=== PATIENT | female | born 1950 | race Caucasian/White ===

== ENCOUNTER 2016-11-10 05:18 | Inpatient (IN) | payer OTHER ==
[2016-11-10] VITALS (18 sets, daily range): BP systolic 102–157; BP diastolic 49–85
[~2016-11-10] VITALS: Ht 162.6 cm; Wt 72.6 kg
[2016-11-10] MEDS ORDERED: XANAX1 MG ORAL (06:08)
[2016-11-10] MEDS ORDERED: CYCLOBENZAPRINE10 MG ORAL (06:08)
[2016-11-10] MEDS ORDERED: PERCOCET 10-321 EACH ORAL (06:08)
[2016-11-10] MEDS ORDERED: Clindamycin 600mg 50 ML IV ONE (06:50)
[2016-11-10] MEDS ORDERED: Bacitracin 50000 Units Vial ONE (06:50)
[2016-11-10] MEDS ORDERED: Thrombin 5000 units TOPIC ONE (06:50)
[2016-11-10] MEDS ORDERED: Surgicel 4in x 8in TOPIC ONE (06:51)
[2016-11-10] MEDS ORDERED: Bupivacaine w/Epi 0.5% 30ml Vial INJ ONE (06:51)
[2016-11-10] MEDS ORDERED: Midazolam 2mg/2ml Inj ONE (07:00)
[2016-11-10] MEDS ORDERED: fentaNYL 100 mcg/2 mL IV ONE (07:00)
[2016-11-10] MEDS ORDERED: LR 1000ml ONE (07:00)
[2016-11-10] MEDS ORDERED: Glycopyrrolate 0.2mg/ml 1ml Vial ONE (07:00)
[2016-11-10] MEDS ORDERED: Morphine Sulfate 10mg/ml Inj ONE (07:00)
[2016-11-10] MEDS ORDERED: Succinylcholine 20mg/ml 10ml vial ONE (07:00)
[2016-11-10] MEDS ORDERED: Ketorolac 30mg Inj ONE (07:00)
[2016-11-10] MEDS ORDERED: Propofol 10mg/ml 20ml IV ONE (07:00)
[2016-11-10] MEDS ORDERED: Labetalol 5mg/ml 20ml vial IV ONE (07:00)
[2016-11-10] MEDS ORDERED: Neostigmine 1mg/ml 10ml Inj ONE (07:00)
[2016-11-10] MEDS ORDERED: Sterile Water Irrig 1000ml IRRIG ONE (07:00)
[2016-11-10] MEDS ORDERED: NS Irrig 1000ml ONE (07:00)
[2016-11-10] MEDS ORDERED: Zemuron 50mg/5ml Inj IV ONE (07:00)
--- NOTE | 2016-11-10 07:20 | Pre-Procedure Note/Attestation ---
Pre-Procedure Note/Attestation Complete Prior to Procedure Procedure Narrative: Severe stenosis with failing neurological function, for ACDF C4-5 & C5-6 Indications for Procedure Pre-Operative Diagnosis: Severe stenosis with failing neurological function, for ACDF C4-5 & C5-6 Attestation I attest that I discussed the nature of the procedure; its benefits; risks and complications; and alternatives (and the risks and benefits of such alternatives ), prior to the procedure, with the patient (or the patient's legal international representative). I attest that, if there was a reasonable possibility of needing a blood transfusion, the patient (or the patient's legal international representative) was given the [place] [facility] standardized written summary, pursuant to the [place] Blood Safety Act ([place] Health and Safety Code # 1645, as amended). I attest that I re-evaluated the patient just prior to the surgery and that there has been no change in the patient's H&P, except as documented below: PERRY CONTRERAS Nov 10, 2016 07:20
[2016-11-10] MEDS ORDERED: Thrombin 5000 units spray kit TOPIC ONE (08:03)
[2016-11-10] MEDS ORDERED: Gelfoam Absorbable 1gm powder pkt TOPIC ONE (08:04)
--- NOTE | 2016-11-10 08:40 | Anethesia Preoperative Eval ---
Anesthesia Pre-op PMH/ROS General Date of Evaluation: Nov 10, 2016 Time of Evaluation: 07:08 Anesthesiologist: Cristhian ASA Score: ASA 3 Mallampati Score Class I : Soft palate, uvula, fauces, pillars visible Class II: Soft palate, uvula, fauces visible Class III: Soft palate, base of uvula visible Class IV: Only hard plate visible Mallampati Classification: Class II Surgeon: Aquilino Diagnosis: Cerical radiculopathy Surgical Procedure: ACDF C4-C5 C5-C6 Anesthesia History: none Social History: current smoker Family History: no anesthesia problems Allergies: Coded Allergies: ACETAMINOPHEN (Verified Allergy, Unknown, 11/07/16) HYDROCODONE (Verified Allergy, Unknown, 11/07/16) PENICILLINS (Verified Allergy, Unknown, 11/07/16) Past Medical History Cardiovascular: Denies: CAD, HTN, [place], arrhythmia, other, valve dz Pulmonary: Reports: COPD, other - persistent voice horsness ENT exam bilateral arhytenoids and vocal cords swelling, Denies: CAR, asthma Gastrointestinal/Genitourinary: Reports: GERD, Denies: CRI, ESRD, other Neurologic/Psychiatric: Reports: depression/anxiety, other - chronic pain, Denies: CVA, TIA, dementia Endocrine: Denies: DM, hypothyroidism, other, steroids HEENT: Denies: MI'KMAQ (L), MI'KMAQ (R), cataract (L), cataract (R), glaucoma, other Hematology/Immune: Denies: DVT, anemia, bleeding disorder, other Musculoskeletal/Integumentary: Denies: DDD, DJD, OA, RA, edema, other Other: other - ovwerweight PMH Narrative: as above PSxH Narrative: T&A Anesthesia Pre-op Phys. Exam Physician Exam Last Vital Signs Date Time Temp Pulse Resp B/P Pulse Ox O2 Delivery O2 Flow Rate FiO2 11/10/16 06:30 97.9 71 20 132/73 97 Room Air Constitutional: NAD Neurologic: CN 2-12 intact Cardiovascular: RRR, no M/R/G Respiratory: other - some whezing bilaterally Gastrointestinal: S/NT/ND Airway Exam Mallampati Score: Class II MO: limited Neck: stiff ROM: limited Teeth: missing Dentures: no lower, no upper Anesthesia Pre-op A/P Labs see chart Studies Pre-op Studies: EKG - NSR, CXR - WNL, echo - EF 55-60% Risk Assessment & Plan Assessment: ASA 3 Plan: GA with ETT deep extubation possible respiratory support postoperatively Status Change Before Surgery: No Pre-Antibiotics Drug: Clindamycin 600 mg. Given Within 1 Hr of Incision: Yes Time Given: 07:56 JORDAN FIGUEROA M.D. Nov 10, 2016 08:40
[2016-11-10] MEDS ORDERED: LR 1000ml 1,000 ML IVLG SCH (08:43)
[2016-11-10] MEDS ORDERED: Metoclopramide 10mg/2ml Inj IVP PRN (08:45)
[2016-11-10] MEDS ORDERED: DiphenhydrAMINE 50mg/ml Inj IVP PRN ×2 (08:45→10:45)
[2016-11-10] MEDS ORDERED: Hydromorphone 0.5mg/0.5ml inj IVP PRN (08:45)
[2016-11-10] MEDS ORDERED: Midazolam 2mg/2ml Inj IVP PRN (08:45)
[2016-11-10] MEDS ORDERED: Meperidine 25mg/ml Inj IV PRN (08:45)
[2016-11-10] MEDS ORDERED: Naloxone 0.4mg/ml Inj IVP PRN (10:45)
[2016-11-10] MEDS ORDERED: Rate Change PCA 1 Each MISC PRN (10:45)
[2016-11-10] MEDS: PCA HYDROmorphone 1mg/ml 30 ML IV PRN (11:12)
--- NOTE | 2016-11-10 11:56 | Immediate Post-Op Evaluation ---
Immediate Post-Op Evalulation Immediate Post-Op Evalulation Procedure: ACDF C4-5 C5-C6 Date of Evaluation: Nov 10, 2016 Time of Evaluation: 10:10 IV Fluids: 700 Blood Products: none Estimated Blood Loss: 50 Urinary Output: none Blood Pressure Systolic: 142 Blood Pressure Diastolic: 56 Pulse Rate: 78 Respiratory Rate: 22 O2 Sat by Pulse Oximetry: 99 Temperature (Fahrenheit): 97.3 Pain Score (1-10): 2 Nausea: No Vomiting: No Complications none Patient Status: reacts, patent, extubated, none Hydration Status: adequate JORDAN FIGUEROA M.D. Nov 10, 2016 11:55
--- NOTE | 2016-11-10 12:21 | Operative Note - PDOC ---
Operative Note Operative Note Pre-op Diagnosis: Severe stenosis with failing neurological function, for ACDF C4-5 & C5-6 Procedure: ACDF C5-5, C5-6 Post-op Diagnosis: same as pre-op Operative Findings: consistent w/pre-op dx studies Surgeon: Aquilino Salesperson New Cars: leona Contreras Anesthesiologist: Jose D Specimen: none Estimated Blood Loss: minimal Drains: none Implant(s) used?: Yes - [employer]: Zevo Cervical Plate PERRY CONTRERAS Nov 10, 2016 12:21
--- NOTE | 2016-11-10 13:13 | Diagnostic Imaging Report ---
Indications: Neck pain, cervical fusion Technique: Procedures including fluoroscopy performed by Dr. Ellison. Portable intraoperative AP and lateral spot film images of the cervical spine obtained. Findings: Comparison: None Initial image demonstrates localizing needle tip overlying the anterior margin of the C5-6 disc space, tip of additional surgical implement anterior to the C4 vertebral body, narrowing of the C4-5 through C6-7 disc spaces with marginal osteophyte formation. Subsequent images demonstrate placement of bone graft within and fusion hardware across the anterior margins of the C4-5 C5-6 disc spaces IMPRESSION: Intraoperative changes as described
[2016-11-10] MEDS ORDERED: ceFAZolin sod 1 GM in D5W 55 ML IV SCH (14:00)
[2016-11-10] MEDS: D5 1/2NS w/KCl 20mEq 1,000 ML IV SCH (14:52)
[2016-11-10] MEDS: Clindamycin 600mg/D5W 50ml Pre-Mix IV SCH ×2 (14:58→21:47)
[2016-11-10] MEDS: PCA shift volume MISC SCH ×2 (15:00→19:52)
--- NOTE | 2016-11-10 16:28 | Operative Note - Dictated ---
DATE OF OPERATION: 11/10/2016 SURGEON: Roddy Rolle M.D. UROLOGIST PHYSICIAN: TUAN Valdivia. ANESTHESIA: General endotracheal with arterial blood pressure monitoring. ANESTHESIOLOGIST: Taj Morrow M.D. 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 POSTOPERATIVE DIAGNOSIS: Lumbar disk bulges with posttraumatic spondylosis at C4-C5 and C5-C6 causing significant canal pressure on the anterior cord, left lateral recess and the foramen at C4-C5 and C5-C6 resulting in radiculopathy. OPERATIVE PROCEDURE: Anterior approach to the cervical spine with anterior annulotomy, nuclear diskectomy, bilateral foraminotomy and micro neurolysis at C4-C5 and C5-C6 along with partial vertebrectomy for canal decompression fusion using autogenous fibular graft 6 mm in height at both the C4-C5 and C5-C6 levels anterior fixation using [employer] compression plate 35 millimeters with both 15 and 17 millimeter compression screws. A 17 millimeter depth fused at the vertebral body of C4. The image intensifier was used. The patient was prepped and draped in a supine position. Halter traction was placed on the neck. Bolster was placed between the shoulder blades to create normal lordosis and traction and support was placed posterior to the cervical spine to create normal lordosis. The Aunt's retract as were the shoulders distally. A lateral x-ray was taken to determine the level of the skin incision. The right-sided 2-inch incision was made in the skin crease and midline laterally, it was carried out through skin, subcutaneous tissue and the platysma was divided. The jugular venous plexus was identified and protected by dissecting it medially and laterally. The interval between the sternocleidomastoid and the carotid sheath laterally and the trachea and esophagus medially was identified and developed. The dissection was carried down to the anterior spine and then over the midline exposing the vertebral bodies of C4, C5 and C6. A East-West North-South retractor was positioned and a lateral fluoro was taken to confirm placement of a needle marker. The C5-C6 level was approached first. The anterior osteophytes were removed from the vertebral body, which was quite hypertrophic with large osteophytes extending both from C5 and C6 anteriorly at distance of 0.5 cm. These osteophytes removed with rongeur and with a Kerrison. The vertebral endplates were identified and dissection was carried from front to back using larger to smaller curettes Kerrisons and pituitaries. The nuclear disc substance and cartilaginous endplate was removed. The upper end plate of C6 was defective centrally and was partially excavated. The endplates were followed down to the canal. The posterior longitudinal ligament was released with a small angled curette and the posterior osteophytes from the body of C5 and C6 were then removed with a Midas using an AMA bur and with a 2 millimeter Kerrison. The foramen was opened widely so that the nerve would have room as it exited. The posterior prominence of the vertebral body of disc that were causing pressure on the cord removed. The cord was well visualized with normal pulsation at the end of the decompression at C5-C6. A 6 millimeter graft was chosen with 6 millimeters of height graft was lordotic with 16 millimeters of depth and 22 millimeters of width. A try was tapped into place with good fit against both endplates, good disk height and overall lordosis. The C4-C5 level was then similarly decompressed using 15 blade to do an annulotomy, removing the anterior osteophytes and then the cartilaginous endplate and soft disc substance sequentially from front to back with Kerrisons, pituitaries and curettes. The posterior longitudinal ligament was removed and the disk was removed from the canal. Osteophytes in the posterior aspect of the body of C4 and C5 were removed. The left and right foramen were opened widely by taking a portion of the uncovertebral joint. The cord was well visualized and was normally pulsating with respiration. A 6 millimeter graft template was used at the C4, C5 and a lateral x-ray was taken with the plate in place. The 35 millimeter plate was chosen. There was a very large lip on the inferior anterior aspect of the body of C4, which was partially removed, but was still quite prominent. The templated interbody grafts were in good position recreating normal height and lordosis. The plate was attached at the very inferior edge of the anterior lip on the body of C4. A 17 millimeter screw was used to skirt the inferior endplate and to make sure that the graft was well fixed. The graft at C4 was left somewhat anteriorly to create better lordosis. At C5-C6, the graft was placed more posteriorly and two 15 screws used in the intermediate hole and one17 and one 15 in the most inferior position. X-rays were taken both AP and lateral showing that the graft and plate were in good position. There was good fixation and good overall alignment. Soft tissues were checked included the carotid sheath. The wound was copiously irrigated. Final x-rays were taken. It was closed in layers including the platysma, subcutaneous and skin. Blood loss was not significant. The patient was placed in a light compression dressing of the cervical collar. Returned recovery room in good condition. Roddy Rolle M.D. DR: EDUAR JOB#: [id number] CC:
[2016-11-10] MEDS ORDERED: Pneumococcal Vaccine 25mcg/0.5ml IM ONE (20:30)
[2016-11-11] VITALS: BP 122/62
[2016-11-11] MEDS: LORazepam 1mg tab ORAL PRN ×2 (02:12→15:20)
[2016-11-11] MEDS: Clindamycin 600mg/D5W 50ml Pre-Mix IV SCH (03:30)
[2016-11-11 04:00] VITALS: BP 150/78
[2016-11-11] MEDS: D5 1/2NS w/KCl 20mEq 1,000 ML IV SCH (04:17)
[2016-11-11] MEDS: PCA shift volume MISC SCH ×2 (07:17→19:00)
--- NOTE | 2016-11-11 07:25 | History & Physical ---
History and Physical History & Physicial 4-10 HP reviewed care noted and d/w RN meds noted will follow up in CECILY Miramontes Nov 11, 2016 07:25
--- NOTE | 2016-11-11 07:26 | General Progress Note ---
Assessment/Plan Assessment/Plan Severe stenosis with failing neurological function, for ACDF C4-5 & C5-6 ACDF C5-5, C5-6 PLAN 1. incentive spirometry 2. SCD 3. PT evaluation and therapy 4. Hydration 5. Pain management 6. discharge once stable with outpatient follow up Subjective Allergies: Coded Allergies: ACETAMINOPHEN (Verified Allergy, Unknown, 11/07/16) HYDROCODONE (Verified Allergy, Unknown, 11/07/16) PENICILLINS (Verified Allergy, Unknown, 11/07/16) Subjective post op care noted Objective Last 24 Hour Vital Signs Date Time Temp Pulse Resp B/P Pulse Ox O2 Delivery O2 Flow Rate FiO2 11/11/16 04:00 98.2 77 16 150/78 95 Room Air 11/11/16 04:00 16 11/11/16 00:00 16 11/11/16 00:00 97.0 75 16 122/62 97 Room Air 11/10/16 20:00 98.2 69 16 112/85 96 Room Air 11/10/16 20:00 18 11/10/16 16:25 97.0 60 16 125/58 95 Room Air 11/10/16 16:00 18 11/10/16 14:27 18 11/10/16 14:00 18 11/10/16 14:00 97.0 67 20 102/58 99 Nasal Cannula 2.0 11/10/16 13:30 18 11/10/16 13:00 18 11/10/16 13:00 97.0 65 17 121/54 98 Nasal Cannula 2.0 11/10/16 12:40 98.0 54 15 106/55 100 Nasal Cannula 3.0 11/10/16 12:25 54 15 112/49 100 Nasal Cannula 3.0 11/10/16 12:25 15 11/10/16 12:10 61 12 104/54 100 Nasal Cannula 3.0 11/10/16 11:55 12 11/10/16 11:55 58 12 119/52 100 Nasal Cannula 3.0 11/10/16 11:55 78 22 99 11/10/16 11:42 98.1 11/10/16 11:40 12 11/10/16 11:40 60 12 125/58 100 Nasal Cannula 3.0 11/10/16 11:25 65 12 128/80 100 Nasal Cannula 3.0 11/10/16 11:25 18 11/10/16 11:12 17 11/10/16 11:12 98.1 11/10/16 11:10 66 12 125/65 100 Nasal Cannula 3.0 11/10/16 10:55 58 11 127/52 100 Nasal Cannula 3.0 11/10/16 10:40 58 11 135/61 100 Nasal Cannula 3.0 11/10/16 10:25 58 11 152/63 100 Nasal Cannula 3.0 11/10/16 10:14 58 11 157/64 100 Nasal Cannula 3.0 11/10/16 10:09 61 19 144/66 99 Simple Mask 6.0 11/10/16 10:04 97.2 60 17 152/53 99 Simple Mask 6.0 Intake and Output 11/10/16 11/11/16 19:00 07:00 Intake Total 1850 ml 675 ml Output Total 50 ml Balance 1800 ml 675 ml Intake Oral 600 ml IV Total 1250 ml 675 ml Output Estimated Blood Loss 50 ml # Voids 1 Height (Feet): 5 Height (Inches): 4.00 Weight (Pounds): 160 Objective WDWN NAD clear breath sounds bilaterally without rhonchi or wheeze [id number] without MRG NABS nontender no HSM no CCE nonfocal CECILY CANDELARIA Nov 11, 2016 07:26
--- NOTE | 2016-11-11 07:39 | 48 Hour Post Anesthesia Eval ---
Post Anesthesia Evaluation Procedure: ACDF C4-5 C5-C6 Date of Evaluation: Nov 11, 2016 Time of Evaluation: 07:00 Blood Pressure Systolic: 156 0: 78 Pulse Rate: 77 Respiratory Rate: 16 Temperature (Fahrenheit): 98.2 O2 Sat by Pulse Oximetry: 95 Airway: patent Nausea: No Vomiting: No Pain Intensity: 0 Hydration Status: adequate Cardiopulmonary Status: at baseline Mental Status/LOC: patient returned to baseline Post-Anesthesia Complications: 0 Follow-up care needed: N/A - further care as per primary team MICHAEL GAN M.D. Nov 11, 2016 07:39
[2016-11-11 08:00] VITALS: BP 143/75
--- NOTE | 2016-11-11 09:10 | General Surgery Progress Note ---
General Surgery-Progress Note Subjective Procedure Performed ACDF C5-5, C5-6 Symptoms: improved Objective Last 24 Hour Vital Signs Date Time Temp Pulse Resp B/P Pulse Ox O2 Delivery O2 Flow Rate FiO2 11/11/16 08:00 98.1 77 18 143/75 99 Room Air 11/11/16 07:39 77 16 95 11/11/16 04:00 98.2 77 16 150/78 95 Room Air 11/11/16 04:00 16 11/11/16 00:00 16 11/11/16 00:00 97.0 75 16 122/62 97 Room Air 11/10/16 20:00 98.2 69 16 112/85 96 Room Air 11/10/16 20:00 18 11/10/16 16:25 97.0 60 16 125/58 95 Room Air 11/10/16 16:00 18 11/10/16 14:27 18 11/10/16 14:00 18 11/10/16 14:00 97.0 67 20 102/58 99 Nasal Cannula 2.0 11/10/16 13:30 18 11/10/16 13:00 18 11/10/16 13:00 97.0 65 17 121/54 98 Nasal Cannula 2.0 11/10/16 12:40 98.0 54 15 106/55 100 Nasal Cannula 3.0 11/10/16 12:25 54 15 112/49 100 Nasal Cannula 3.0 11/10/16 12:25 15 11/10/16 12:10 61 12 104/54 100 Nasal Cannula 3.0 11/10/16 11:55 12 11/10/16 11:55 58 12 119/52 100 Nasal Cannula 3.0 11/10/16 11:55 78 22 99 11/10/16 11:42 98.1 11/10/16 11:40 12 11/10/16 11:40 60 12 125/58 100 Nasal Cannula 3.0 11/10/16 11:25 65 12 128/80 100 Nasal Cannula 3.0 11/10/16 11:25 18 11/10/16 11:12 17 11/10/16 11:12 98.1 11/10/16 11:10 66 12 125/65 100 Nasal Cannula 3.0 11/10/16 10:55 58 11 127/52 100 Nasal Cannula 3.0 11/10/16 10:40 58 11 135/61 100 Nasal Cannula 3.0 11/10/16 10:25 58 11 152/63 100 Nasal Cannula 3.0 11/10/16 10:14 58 11 157/64 100 Nasal Cannula 3.0 11/10/16 10:09 61 19 144/66 99 Simple Mask 6.0 11/10/16 10:04 97.2 60 17 152/53 99 Simple Mask 6.0 I&O Intake and Output 11/10/16 11/11/16 19:00 07:00 Intake Total 1850 ml 900 ml Output Total 50 ml Balance 1800 ml 900 ml Intake Oral 600 ml IV Total 1250 ml 900 ml Output Estimated Blood Loss 50 ml # Voids 1 Dressing: dry Wound: clean Drains: none Additional Comments Patient not tolerating cervical collar yet. Will work on this Left arm improved motor and sensory after surgery. PT/OT to begin working with patient today. Dr. Nathalie yang. PERRY CONTRERAS Nov 11, 2016 09:10
[2016-11-11 11:59] VITALS: BP 146/80
[2016-11-11] MEDS: PCA HYDROmorphone 1mg/ml 30 ML IV PRN (12:31)
[2016-11-11] MEDS ORDERED: Tubing IV Secondary IV ONE (16:13)
[2016-11-11 20:00] VITALS: BP 182/80
[2016-11-12] VITALS: BP 191/85
[2016-11-12] MEDS: LORazepam 1mg tab ORAL PRN ×2 (01:17→10:27)
[2016-11-12 04:00] VITALS: BP 185/93
[2016-11-12] MEDS: PCA shift volume MISC SCH (07:00)
[2016-11-12 08:55] VITALS: BP 137/69
[2016-11-12] MEDS ORDERED: Naloxone 0.4mg/ml Inj IVP PRN (10:45)
--- NOTE | 2016-11-12 11:26 | General Surgery Progress Note ---
General Surgery-Progress Note Subjective Procedure Performed ACDF C5-5, C5-6 Symptoms: improved Objective Last 24 Hour Vital Signs Date Time Temp Pulse Resp B/P Pulse Ox O2 Delivery O2 Flow Rate FiO2 11/12/16 08:55 98.2 65 19 137/69 94 Nasal Cannula 11/12/16 08:00 22 11/12/16 04:00 20 11/12/16 04:00 98.2 71 20 185/93 98 Nasal Cannula 11/12/16 00:00 97.5 87 20 191/85 96 Nasal Cannula 2.0 11/12/16 00:00 20 11/11/16 20:00 98.4 84 20 182/80 96 Nasal Cannula 2.0 11/11/16 20:00 20 11/11/16 16:00 18 11/11/16 12:00 18 11/11/16 11:59 99.5 146 18 146/80 98 Room Air I&O Intake and Output 11/11/16 11/12/16 18:59 06:59 Intake Total 300 ml 600 ml Balance 300 ml 600 ml Intake Oral 300 ml 600 ml # Voids 1 3 Dressing: dry Wound: clean Drains: none Additional Comments Patient now tolerating regular diet. She has received PT / OT instructions. She is not consistently wearing cervical collar. She has medication and bone growth stimulator for home. Dr. Zelaya following. She is ready to be discharged. PERRY CONTRERAS Nov 12, 2016 11:26
--- NOTE | 2016-11-12 12:50 | General Progress Note ---
Assessment/Plan Assessment/Plan Severe stenosis with failing neurological function, for ACDF C4-5 & C5-6 ACDF C5-5, C5-6 PLAN 1. DC today 2. post op care 3. follow up with spine 4. Encourage Hydration 5. Pain management Subjective Allergies: Coded Allergies: ACETAMINOPHEN (Verified Allergy, Unknown, 11/07/16) HYDROCODONE (Verified Allergy, Unknown, 11/07/16) PENICILLINS (Verified Allergy, Unknown, 11/07/16) Subjective post op care noted doing well Objective Last 24 Hour Vital Signs Date Time Temp Pulse Resp B/P Pulse Ox O2 Delivery O2 Flow Rate FiO2 11/12/16 08:55 98.2 65 19 137/69 94 Nasal Cannula 11/12/16 08:00 22 11/12/16 04:00 20 11/12/16 04:00 98.2 71 20 185/93 98 Nasal Cannula 11/12/16 00:00 97.5 87 20 191/85 96 Nasal Cannula 2.0 11/12/16 00:00 20 11/11/16 20:00 98.4 84 20 182/80 96 Nasal Cannula 2.0 11/11/16 20:00 20 11/11/16 16:00 18 Intake and Output 11/11/16 11/12/16 19:00 07:00 Intake Total 300 ml 600 ml Balance 300 ml 600 ml Intake Oral 300 ml 600 ml # Voids 1 3 Height (Feet): 5 Height (Inches): 4.00 Weight (Pounds): 160 Objective WDWN NAD clear breath sounds bilaterally without rhonchi or wheeze [id number] without MRG NABS nontender no HSM no CCE nonfocal CECILY CANDELARIA Nov 12, 2016 12:50
--- NOTE | 2016-11-13 11:48 | Discharge Summary ---
Discharge Summary Hospital Course Date of Admission Nov 10, 2016 at 05:18 Date of Discharge Nov 12, 2016 at 11:00 Admitting Diagnosis HPI Eli Carmona is a 66 year old female who was admitted on Nov 10, 2016 at 05:18 for C5-6 Disc Protusion Hospital Course job # [id number] Discharge Discharge Disposition Patient was discharged to Home (01) Discharge Diagnoses: Tomasa Augustin NP Nov 13, 2016 11:48
--- NOTE | 2016-11-14 00:58 | Discharge Summary 2 SIG ---
DATE OF ADMISSION: 11/10/2016 DATE OF DISCHARGE: 11/12/2016 SURGEON: Roddy Rolle M.D. BRIEF HOSPITAL COURSE: The patient is a 66-year-old female, who sustained an injury when a file cabinet fell on top of her. Date of injury was 04/04/2015. As a result, she injured her left hand, wrist, left shoulder, back and neck and notes radiation of pain down the left arm. She also has numbness of the left hand. She underwent cortisone injection, physical therapy, and pain management. However, reports pain with prolonged standing, walking, and sitting and is unable to sleep through the night due to pain and discomfort. She was admitted on 11/10/2016 and underwent ACDF on C4-C5 and C5-C6. Postoperative findings showed lumbar disk bulges with posttraumatic spondylosis at the level of C4-C5 and C5-C6, causing significant pressure on the anterior cord, left lateral recess and foramen resulting in radiculopathy. Postoperatively, she was given pain management. The patient was given incentive spirometry and SCDs for DVT prophylaxis. She was seen by physical therapy. She was initially started on clear liquid diet and gradually advanced to postop cervical diet. She was provided with a neck collar, front wheel walker, and bedside commode. However, she was noted to be not consistently wearing the cervical collar. Left arm neuropathy and motor strength improved after surgery. The patient was eventually discharged home to follow up as an outpatient. FINAL DIAGNOSES: Severe cervical stenosis with failing neurologic function on C4-C5 and C5-C6, status post anterior cervical discectomy and fusion of C4-C5 and C5-C6. Saul Zelaya M.D. I have been assigned to dictate discharge summary on this account and I was not involved in the patient's management. Tomasa Augustin N.P. DR: HERMINIO JOB#: [id number] CC:
== END 2016-11-12 11:00 | disposition home or self-care (01) | DRG 473 ==
LOC: SDSOVERFLO 05:18 → 3E 12:53
PROC: 0RG2070 Fusion of 2 or more Cervical Vertebral Joints with Autologous Tissue Substitute, Anterior Approach, Anterior Column, Open Approach (ICD-10-PCS; principal; 2016-11-10 07:00)
DX: M50.121 Cervical disc disorder at C4-C5 level with radiculopathy (principal); M48.02 Spinal stenosis, cervical region; M47.22 Other spondylosis with radiculopathy, cervical region; W20.8XXS Other cause of strike by thrown, projected or falling object, sequela; Z88.6 Allergy status to analgesic agent; Z88.0 Allergy status to penicillin; F17.200 Nicotine dependence, unspecified, uncomplicated
CPT/HCPCS: 36415; 72040; 76001; 86850; 86900; 86901; 87081; 90732; 94003; 94150; J2180; J2250; J2405; J2710; S0077